=== PATIENT | male | born 1955 ===

== ENCOUNTER 2017-04-04 10:11 | Emergency (ER) | payer OTHER ==
[2017-04-04 10:19] VITALS: TEMP 97.8
[2017-04-04] MEDS ORDERED: Aspirin 325 mg EC Tablets PO STA (11:05)
--- NOTE | 2017-04-04 11:07 | C.PDOC ---
History Of Present Illness Patient presents to ED with complaints of 5 day history of generalized headache and 15 day history of chest pain. He describes headache as generalized pressure like and believes related to high blood pressures. Denies any associated dizziness, vision changes, nausea, facial or extremity numbness or weakness. He describes chest pain as mild intermittent episodes lasting few seconds to minute , in midsternal chest. Denies any current chest pain, last episode was 4 days ago. He does not have primary physician. He is visiting from [place] [address], came to [place] 4 months ago. He reports he is compliant with his 2 BP medications, but is running low. Former smoker, quit years ago. No known history of CAD or family history. Time Seen by Provider: 04/04/17 10:57 Chief Complaint (Nursing): High Blood Pressure History Per: Patient History/Exam Limitations: no limitations Onset/Duration Of Symptoms: Days Current Symptoms Are (Timing): Still Present Associated Symptoms: Chest Pain, Headache Additional History Per: Patient Past Medical History Reviewed: Historical Data, Nursing Documentation, Vital Signs Vital Signs: Last Vital Signs Temp 97.8 F 04/04/17 10:16 Pulse 67 04/04/17 12:15 Resp 16 04/04/17 12:15 BP 132/86 04/04/17 12:15 Pulse Ox 98 04/04/17 13:45 - Medical History PMH: HTN Surgical History: No Surg Hx Family History: States: No Known Family Hx, Hypertension - Social History Hx Tobacco Use: Yes (quit years ago) Hx Alcohol Use: No Hx Substance Use: No - Immunization History Hx Tetanus Toxoid Vaccination: No Hx Influenza Vaccination: Yes Hx Pneumococcal Vaccination: No Review Of Systems Except As Marked, All Systems Reviewed And Found Negative. Constitutional: Negative for: Fever Eyes: Negative for: Vision Change Cardiovascular: Positive for: Chest Pain (mildly intermittent) Skin: Negative for: Rash Neurological: Negative for: Weakness, Numbness Physical Exam - Physical Exam Appears: Well, Non-toxic, No Acute Distress Skin: Warm, Dry, No Rash Head: Atraumatic, Normacephalic, No Tenderness, No Swelling, Other (no temoral swelling or tenderness) Eye(s): bilateral: Normal Inspection, PERRL, EOMI, Other (no nystagmus) Nose: Normal, No Discharge Oral Mucosa: Moist Neck: Supple Chest: Symmetrical, No Tenderness Cardiovascular: Rhythm Regular, No Murmur, No JVD, No Other (gallop ) Respiratory: Normal Breath Sounds, No Accessory Muscle Use, No Rales, No Rhonchi , No Wheezing Gastrointestinal/Abdominal: Soft, No Tenderness, No Distention, No Guarding, No Rebound Extremity: No Pedal Edema, No Calf Tenderness, Other (Bilateral: Atraumatic, Normal Color and Temperature, Normal ROM) Neurological/Psych: Oriented x3, Normal Speech, Other (cranial nerves 2-12 grossly intact. Normal strength in all extremities, no drift. Sensation intact) Gait: Steady ED Course And Treatment - Laboratory Results Result Diagrams: 04/04/17 11:13 04/04/17 11:13 Lab Interpretation: No Acute Changes ECG: Interpreted By Me, Viewed By Me ECG Rhythm: Sinus Rhythm ECG Interpretation: No Acute Changes Rate From EC O2 Sat by Pulse Oximetry: 98 (RA) Pulse Ox Interpretation: Normal - Other Rad chest x-ray X-Ray: Interpreted by Me, Viewed By Me, Read By Radiologist Interpretation: HISTORY: chest pain. COMPARISON: None available. TECHNIQUE: Chest PA and lateral. FINDINGS: LUNGS: No focal consolidation. Please note that chest x-ray has limited sensitivity for the detection of pulmonary masses. PLEURA: No significant pleural effusion identified. No definite pneumothorax . CARDIOVASCULAR: Heart size appears within normal limits. Ectatic aorta. OSSEOUS STRUCTURES: Multiple right rib fracture deformities appear chronic (right 4th through 6th lateral ribs) ; correlate clinically. Degenerative changes of the spine. VISUALIZED UPPER ABDOMEN: Unremarkable. OTHER FINDINGS: None. IMPRESSION: No focal consolidation, significant pleural effusion, or definite pneumothorax identified. Multiple right rib fracture deformities appear chronic (right 4th through 6th lateral ribs) ; correlate clinically. - CT Scan/US head/ct Other Rad Studies (CT/US): Interpreted By Me CT/US Interpretation: PROCEDURE: CT HEAD WITHOUT CONTRAST. HISTORY: headache x 5 days. COMPARISON: None available. TECHNIQUE: Axial computed tomography images were obtained through the head/brain without intravenous contrast. Radiation dose: Total exam DLP = 915.19 mGy-cm. This CT exam was performed using one or more of the following dose reduction techniques: Automated exposure control, adjustment of the mA and/or kV according to patient size, and/ or use of iterative reconstruction technique. FINDINGS: HEMORRHAGE: No intracranial hemorrhage. BRAIN: No mass effect or edema. Intracranial atherosclerotic calcifications. 4 mm right basal ganglia lacunar infarct. Minimal scattered white matter hypodensities, which are nonspecific, but often seen with chronic microvascular ischemic disease. Please note that MRI with diffusion imaging is more sensitive in the detection of acute ischemic event. VENTRICLES: No hydrocephalus. CALVARIUM: Unremarkable. PARANASAL SINUSES: Mucosal thickening of the ethmoid air cells and right frontal sinus. Mucosal thickening of the left maxillary sinus. Correlate clinically for history of sinusitis. MASTOID AIR CELLS: Unremarkable as visualized. No inflammatory changes. OTHER FINDINGS: None. IMPRESSION: No acute intracranial pathology identified. 4 mm right basal ganglia lacunar infarct. Minimal scattered nonspecific white matter hypodensities. Mucosal thickening of the ethmoid air cells and right frontal sinus. Mucosal thickening of the left maxillary sinus. Correlate clinically for history of sinusitis. Progress Note: Chest X-ray and Head Ct scan were performed. Upon reassessment, the patient is afebrile. The patient is given medication for home and is advised to have a 1-2 day follow up with his PCP for further evaluation. Medical Decision Making Medical Decision Making: Impression: HTN, headache and chest pain for several days Plan: * EKG * CXR * Labs * Head CT Progress: EKG NS at 6 bpm with slight left axis deviation, and no ST-T changes or other acute abnormality. no priors available for comparison. Labs reviewed CXR shows No focal consolidation, significant pleural effusion, or definite pneumothorax identified. Multiple right rib fracture deformities appear chronic (right 4th through 6th lateral ribs) ; correlate clinically. CT head shows No acute intracranial pathology identified. 4 mm right basal ganglia lacunar infarct. Minimal scattered nonspecific white matter hypodensities. Mucosal thickening of the ethmoid air cells and right frontal sinus. Mucosal thickening of the left maxillary sinus. Correlate clinically for history of sinusitis. Patient reevalauted and has no fever, nuchal rigidity or neuro deficits. He is feeling well in no distress. No current chest pain. discussed results with patient and plan is for discharge with Rx antibiotics for sinusitis. Advise follow up with the clinic Disposition Counseled Patient/Family Regarding: Diagnosis, Need For Followup, Rx Given - Disposition Referrals: [facility] [Outside] [facility] [Outside] Disposition: HOME/ ROUTINE Disposition Time: 12:40 Condition: STABLE Additional Instructions: Seguimiento en la clnica para ms cuidado [place] paulo medicamentos habituales damari antibiticos dos veces al da Prescriptions: Amoxicillin/Clavulanate [Augmentin 875 MG-125 MG] 1 tab PO BID #14 tab Loratadine [Claritin] 10 mg PO DAILY #30 tab Instructions: Sinusitis (ED) Forms: [employer] (Divehi) Print Language: SINHALA - POA Present On Arrival: None - Clinical Impression Clinical Impression: Sinusitis, Chronic hypertension - PA / PUBLIC HEALTH ADMINISTRATOR / Resident Statement MD/DO has examined the patient and agrees with the treatment plan. - Scribe Statement The provider has reviewed the documentation as recorded by the Scribe Phyllis Bentley
[2017-04-04 11:18] VITALS: RESP 16
[2017-04-04 11:23] LABS: BASO % 0.4 % (0.0-2.0); EOS # 0.3 K/uL (0.0-0.7); EOS % 3.7 % (0.0-4.0); HEMOGLOBIN 15.1 g/dL (12.0-18.0); LYMPH # 2.3 K/uL (1.0-4.3); LYMPH % 31.8 % (20.0-40.0); MEAN CELL VOLUME 82.7 fL (80.0-94.0); MEAN CORPUSCULAR HEMOGLOBIN 28.3 pg (27.0-31.0); MEAN CORPUSCULAR HGB CONC 34.2 g/dL (33.0-37.0); MEAN PLATELET VOLUME 8.6 fL (7.2-11.7); MONO # 0.7 K/uL (0.0-0.8); MONO % 9.1 % (0.0-10.0); RBC 5.34 Mil/uL (4.40-5.90); RED CELL DISTRIBUTION WIDTH 14.2 % (11.5-14.5); WHITE BLOOD COUNT 7.2 K/uL (4.8-10.8)
[2017-04-04 11:31] LABS: ALB/GLOB RATIO 1.2 (1.0-2.1); ALBUMIN 3.9 g/dL (3.5-5.0); ALT/SGPT 40 U/L (21-72); AST/SGOT 38 U/L (17-59); BLOOD UREA NITROGEN 22 mg/dL (9-20); CALCIUM 8.4 mg/dl (8.6-10.4); GFR AFRICAN-AMERICAN 53; GFR NON-AFRICAN AMERICAN 44; HDL CHOLESTEROL 28 mg/dL (30-70)
[2017-04-04 11:32] LABS: PROTHROMBIN TIME 11.2 SECONDS (9.7-12.2)
--- NOTE | 2017-04-04 11:36 | RAD ---
HISTORY: chest pain COMPARISON: None available. TECHNIQUE: Chest PA and lateral FINDINGS: LUNGS: No focal consolidation. Please note that chest x-ray has limited sensitivity for the detection of pulmonary masses. PLEURA: No significant pleural effusion identified. No definite pneumothorax . CARDIOVASCULAR: Heart size appears within normal limits. Ectatic aorta. OSSEOUS STRUCTURES: Multiple right rib fracture deformities appear chronic (right 4th through 6th lateral ribs) ; correlate clinically. Degenerative changes of the spine. VISUALIZED UPPER ABDOMEN: Unremarkable. OTHER FINDINGS: None. IMPRESSION: No focal consolidation, significant pleural effusion, or definite pneumothorax identified. Multiple right rib fracture deformities appear chronic (right 4th through 6th lateral ribs) ; correlate clinically.
[2017-04-04 11:42] LABS: LDL CHOLESTEROL 90 mg/dL (0-129)
[2017-04-04 12:18] VITALS: BP 132/86; PULSE 67
--- NOTE | 2017-04-04 12:36 | CT ---
PROCEDURE: CT HEAD WITHOUT CONTRAST. HISTORY: headache x 5 days COMPARISON: None available. TECHNIQUE: Axial computed tomography images were obtained through the head/brain without intravenous contrast. Radiation dose: Total exam DLP = 915.19 mGy-cm. This CT exam was performed using one or more of the following dose reduction techniques: Automated exposure control, adjustment of the mA and/or kV according to patient size, and/or use of iterative reconstruction technique. FINDINGS: HEMORRHAGE: No intracranial hemorrhage. BRAIN: No mass effect or edema. Intracranial atherosclerotic calcifications. 4 mm right basal ganglia lacunar infarct. Minimal scattered white matter hypodensities, which are nonspecific, but often seen with chronic microvascular ischemic disease. Please note that MRI with diffusion imaging is more sensitive in the detection of acute ischemic event. VENTRICLES: No hydrocephalus. CALVARIUM: Unremarkable. PARANASAL SINUSES: Mucosal thickening of the ethmoid air cells and right frontal sinus. Mucosal thickening of the left maxillary sinus. Correlate clinically for history of sinusitis. MASTOID AIR CELLS: Unremarkable as visualized. No inflammatory changes. OTHER FINDINGS: None. IMPRESSION: No acute intracranial pathology identified. 4 mm right basal ganglia lacunar infarct. Minimal scattered nonspecific white matter hypodensities. Mucosal thickening of the ethmoid air cells and right frontal sinus. Mucosal thickening of the left maxillary sinus. Correlate clinically for history of sinusitis.
[2017-04-04 12:43] VITALS: O2SAT 98
--- NOTE | 2017-04-06 15:00 | CARD ---
APPROVED REPORT EKG Measurement Heart [id number] <Conclusion> Normal sinus rhythm Normal ECG
== END 2017-04-04 13:15 | disposition home or self-care (01) ==
LOC: C.ER 10:11
DX: I10 Essential (primary) hypertension (principal); J32.9 Chronic sinusitis, unspecified

== ENCOUNTER 2017-04-24 08:26 | Emergency (ER) | payer OTHER ==
[2017-04-24 08:55] VITALS: RESP 18
[2017-04-24 12:16] VITALS: BP 128/87; PULSE 93; TEMP 98.6; O2SAT 95
--- NOTE | 2017-04-24 12:45 | C.PDOC ---
History Of Present Illness 62 y/o male presents to the ER complaining of cough and subjective fever which has been present for the past 4 days. Patient states that he has a mildly productive cough producing whitish phlegm. Patient denies having body aches, chest pain, and SOB. Patient also denies any sick contacts and recent travel. Chief Complaint (Nursing): ENT Problem History Per: Patient History/Exam Limitations: no limitations Onset/Duration Of Symptoms: Days Severity: Moderate Past Medical History Reviewed: Historical Data, Nursing Documentation, Vital Signs Vital Signs: Last Vital Signs Temp 98.6 F 04/24/17 12:15 Pulse 93 H 04/24/17 12:15 Resp 18 04/24/17 12:15 BP 128/87 04/24/17 12:15 Pulse Ox 95 04/24/17 12:52 - Medical History PMH: HTN Surgical History: No Surg Hx Family History: States: Hypertension - Social History Hx Tobacco Use: Yes (quit years ago) Hx Alcohol Use: No Hx Substance Use: No - Immunization History Hx Tetanus Toxoid Vaccination: No Hx Influenza Vaccination: Yes Hx Pneumococcal Vaccination: No Review Of Systems Except As Marked, All Systems Reviewed And Found Negative. Constitutional: Positive for: Fever. Negative for: Malaise Cardiovascular: Negative for: Chest Pain Respiratory: Positive for: Cough. Negative for: Shortness of Breath Physical Exam - Physical Exam Appears: Non-toxic, No Acute Distress Skin: Normal Color, Warm Head: Atraumatic, Normacephalic Eye(s): bilateral: Normal Inspection Ear(s): Bilateral: Normal Nose: Normal Oral Mucosa: Moist Throat: Normal, No Erythema, No Exudate Neck: Supple Chest: Symmetrical Cardiovascular: Rhythm Regular Respiratory: Normal Breath Sounds, No Accessory Muscle Use, No Rales, No Rhonchi , No Wheezing Extremity: Normal ROM Neurological/Psych: Oriented x3, Normal Speech, Normal Motor, Normal Sensation ED Course And Treatment O2 Sat by Pulse Oximetry: 95 (RA) Pulse Ox Interpretation: Normal - Radiology CXR: Interpreted by Me, Viewed By Me CXR Interpretation: Yes: No Acute Disease Medical Decision Making Medical Decision Making: Plan: --CXR Progress: CXR found to be negative. Patient discharged and told to follow up with clinic in 3-4 days. Disposition - Disposition Referrals: [facility] [Outside] [facility] [Outside] Disposition: HOME/ ROUTINE Disposition Time: 10:00 Condition: GOOD Additional Instructions: Thank you for letting us take care of you today. The emergency medical care you received today was directed at your acute symptoms. If you were prescribed any medication, please fill it and take as directed. It may take several days for your symptoms to resolve. Return to the Emergency Department if your symptoms worsen, do not improve, or if you have any other problems. Please contact your doctor or call one of the physicians/clinics you have been referred to that are listed on the Patient Visit Information form that is included in your discharge packet. Bring any paperwork you were given at discharge with you along with any medications you are taking to your follow up visit. Our treatment cannot replace ongoing medical care by a primary care provider (PCP) outside of the emergency department. Thank you for allowing the [facility] team to be part of your care today. Follow up with the clinic in 3-4 days for re-evaluation and further management. Ashlie por dejarnos atenderlo hoy. La atencin mdica de emergencia que recibi hoy estaba dirigida a yanci sntomas agudos. Si le prescribieron algn medicamento, llnelo y tome segn las indicaciones. Yanci sntomas pueden tardar varios ogden en resolverse. Regrese al Departamento de Emergencia si yanci s ntomas empeoran, no mejoran o si tiene algn otro problema. Comunquese con us mdico o llame a rg de los mdicos / clnicas a los que ni sido referido que figura en el formulario de Informacin de visita del paciente que se incluye en us paquete de debbie. Traiga todos los documentos que recibi al momento del debbie junto con los medicamentos que est tomando en us visita de seguimiento. Nuestro tratamiento no puede reemplazar la atencin mdica en curso por parte de un proveedor de atencin primaria (PCP) fuera del departamento de emergencias. Ashlie por permitir que el equipo de [facility] sea parte de us cuidado hoy. Mary Jane un seguimiento con la clnica en 3-4 ogden para jasmine nueva evaluacin y ms administracin. Prescriptions: Azithromycin [Zithromax] 250 mg PO DAILY #6 tab Ibuprofen [Motrin] 600 mg PO Q6 PRN #20 tab PRN Reason: Pain, Moderate (4-7) Instructions: Upper Respiratory Infection (ED) Forms: [employer] (Frisian) Print Language: PALESTINIAN - Clinical Impression Clinical Impression: URI (upper respiratory infection) - Scribe Statement The provider has reviewed the documentation as recorded by the Scribe Devaughn Barcenas Provider Attestation: All medical record entries made by the Scribe were at my direction and personally dictated by me. I have reviewed the chart and agree that the record accurately reflects my personal performance of the history, physical exam, medical decision making, and the department course for this patient. I have also personally directed, reviewed, and agree with the discharge instructions and disposition.
--- NOTE | 2017-04-24 13:20 | RAD ---
HISTORY: r/o infiltrate COMPARISON: Comparison is made with 04/04/2017 TECHNIQUE: Chest PA and lateral FINDINGS: LUNGS: No active pulmonary disease. PLEURA: No significant pleural effusion identified. No pneumothorax apparent. CARDIOVASCULAR: Normal. OSSEOUS STRUCTURES: Old fractures and deformity noted at the right ribs. VISUALIZED UPPER ABDOMEN: Normal. OTHER FINDINGS: None. IMPRESSION: No active disease.
== END 2017-04-24 12:17 | disposition home or self-care (01) ==
LOC: C.ER 08:26
DX: J06.9 Acute upper respiratory infection, unspecified (principal)